=== PATIENT | female | born 1975 | race Caucasian/White ===

== ENCOUNTER 2021-11-05 12:18 | Emergency (ER) | payer OTHER ==
[2021-11-05 12:48] LABS: BASOPHILS % (AUTO) 0.1 %; EOSINOPHILS % (AUTO) 0.2 %; HCT - HEMATOCRIT 46.8 % (37.0-47.0); HGB - HEMOGLOBIN 16.2 g/dL (12.0-16.0); LYMPHOCYTES # (AUTO) 1.2 10^3/uL (1.5-3.5); LYMPHOCYTES % (AUTO) 8.7 %; MEAN CORPUSCULAR HEMOGLOBIN 29.1 pg (27.0-31.0); MEAN CORPUSCULAR HGB CONC 34.6 g/dL (32.0-36.0); MEAN PLATELET VOLUME 9.3 fL (7.9-10.8); MONOCYTES # (AUTO) 0.5 10^3/uL (0.0-1.0); MONOCYTES % (AUTO) 3.4 %; NEUTROPHILS % (AUTO) 87.2 %; PLT - PLATELET COUNT 327 10^3/uL (130-450); RED BLOOD COUNT 5.57 10^6/uL (4.20-5.40); RED CELL DISTRIBUTION WIDTH 12.2 % (12.0-15.0); WHITE BLOOD COUNT 13.7 x10^3/uL (4.8-10.8)
[2021-11-05 13:02] LABS: ALBUMIN 4.9 g/dL (3.2-5.5); ALBUMIN/GLOBULIN RATIO 1.6 (1.0-2.2); BILIRUBIN,TOTAL 0.7 mg/dL (0.2-1.0); CALCIUM 9.3 mg/dL (8.5-10.3); CREATININE 0.8 mg/dL (0.4-1.0); POTASSIUM 3.9 mmol/L (3.5-5.0)
--- NOTE | 2021-11-05 13:51 | ED Physician Documentation ---
PD HPI NVD - Stated complaint Stated Complaint: VOMITTING/DIARRHEA - Chief complaint Chief Complaint: Abd Pain - History obtained from History obtained from: Patient - History of Present Illness Timing - onset: Last night Timing - duration: Hours Timing - details: Abrupt onset (nausea and vomiting with diarrhea started overnight and still this morning.), Still present Associated symptoms: Abdominal pain (crampy mid abd), Loss of appetite. No: Near syncope / syncope Contributing factors: No: Sick contact, Bad food, Recent antibiotics, Alcohol use Worsened by: Eating Similar symptoms before: Has not had sx before Recently seen: Clinic Review of Systems Constitutional: denies: Fever, Chills Nose: denies: Rhinorrhea / runny nose, Congestion Throat: denies: Sore throat Respiratory: denies: Cough GI: reports: Abdominal Pain, Nausea, Vomiting, Diarrhea. 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: section - Present Medications Home Medications: Ambulatory Orders Medication Instructions Recorded Confirmed Diphenoxylate/Atropine [Lomotil] 1 each PO QID PRN #12 tablet 11/05/21 Famotidine [Pepcid] 20 mg PO DAILY #15 tablet 11/05/21 Ondansetron Odt [Zofran] 4 mg TL Q6H PRN #10 tablet 11/05/21 - Allergies Allergies/Adverse Reactions: Allergies Allergy/AdvReac Type Severity Reaction Status Date / Time No Known Drug Allergies Allergy Verified 11/05/21 12:26 PD ED PE NORMAL - Vitals Vital signs reviewed: Yes - General General: Alert and oriented X 3, Well developed/nourished, Other (appears uncomfortable due to nausea. ) - HEENT HEENT: Pharynx benign. No: Moist mucous membranes - Neck Neck: Supple, no meningeal sign, No adenopathy - Cardiac Cardiac: RRR, No murmur - Respiratory Respiratory: Clear bilaterally - Abdomen Abdomen: Soft, Non distended, No organomegaly, Other (tender mid abd to epiga stric. Not really tender in RLQ. No percussion nor rebound. ). No: Normal bowel sounds (somewhat hyperactive.) Results - Vitals Vitals: Vital Signs - 24 hr 11/05/21 11/05/21 11/05/21 12:27 14:52 16:00 Temperature 36.5 C 96.6 C H 36.6 C Heart Rate 98 90 86 Respiratory 16 16 16 Rate Blood Pressure 149/99 H 124/73 141/71 H O2 Saturation 98 98 100 11/05/21 17:03 Temperature 36.7 C Heart Rate 88 Respiratory 16 Rate Blood Pressure 136/87 H O2 Saturation 99 Oxygen O2 Source Room air - Labs Labs: Laboratory Tests 11/05/21 11/05/21 11/05/21 12:45 12:45 15:04 WBC 13.7 H RBC 5.57 H Hgb 16.2 H Hct 46.8 MCV 84.0 MCH 29.1 MCHC 34.6 RDW 12.2 Plt Count 327 MPV 9.3 Neut # (Auto) 12.0 H Lymph # (Auto) 1.2 L [place] # (Auto) 0.5 Eos # (Auto) 0.0 Baso # (Auto) 0.0 Absolute Nucleated RBC 0.00 Nucleated RBC % 0.0 Sodium 136 Potassium 3.9 Chloride 104 Carbon Dioxide 22 Anion Gap 10.0 BUN 12 Creatinine 0.8 Estimated GFR (MDRD) 77 L Glucose 132 H Calcium 9.3 Total Bilirubin 0.7 AST 19 ALT 31 Alkaline Phosphatase 71 Total Protein 8.0 Albumin 4.9 Globulin 3.1 Albumin/Globulin Ratio 1.6 Lipase 39 Urine Color YELLOW Urine Clarity CLEAR Urine pH 6.0 Ur Specific [place] 1.015 Urine Protein NEGATIVE Urine Glucose (UA) NEGATIVE Urine Ketones NEGATIVE Urine Occult Blood SMALL H Urine Nitrite NEGATIVE Urine Bilirubin NEGATIVE Urine Urobilinogen 0.2 (NORMAL) Ur Leukocyte Esterase NEGATIVE Urine RBC 0-5 Urine WBC 0-3 Ur Squamous Epith Cells FEW Squamous Urine Bacteria Rare Urine Mucus Few Strands Ur Microscopic Review INDICATED Urine Culture Comments NOT INDICATED PD MEDICAL DECISION MAKING - ED course Complexity details: considered differential (shared decision for IV fluids and meds, labs, without imaging at this time, as seems likely GE and not as suspicious for appy, divertic, SBO, etc.), d/w patient Departure - Departure Disposition: 01 Home, Self Care Clinical Impression: Nausea vomiting and diarrhea, Dehydration, Upper abdominal pain Condition: Stable Instructions: ED Diet Vomiting Diarrhea Prescriptions: Diphenoxylate/Atropine [Lomotil] 1 each PO QID PRN #12 tablet PRN Reason: Diarrhea Famotidine [Pepcid] 20 mg PO DAILY #15 tablet Ondansetron Odt [Zofran] 4 mg TL Q6H PRN #10 tablet PRN Reason: Nausea / Vomiting Comments: Your symptoms sound most likely to be a viral gastroenteritis with the nausea vomiting diarrhea and abdominal pains. It does not seem located in the position to think of appendicitis. Your gallbladder is already gone. Your blood tests appear normal with a normal lipase and liver function tests. At this point I think it is reasonable to see how you do with antiemetic and antidiarrheal. Add Tylenol every 4-6 hours if needed for pain. No doubt your stomach would be irritated from the vomiting as well as the initial illness so some acid reducing medicine such as famotidine once or twice daily for the next week to 2 weeks. Recheck if not improved well over the next 1 to 2 days and return sooner if worsening symptoms or persistence in the abdominal discomfort. I transmitted your prescriptions to [facility] pharmacy in [place]. Discharge Date/Time: 11/05/21 17:06
[2021-11-05] MEDS ORDERED: ONDANSETRON 4 MG/2 ML VIAL IVP STA ×2 (14:02→15:32)
[2021-11-05] MEDS ORDERED: FAMOTIDINE 20 MG/2 ML VIAL IVP STA (14:02)
[2021-11-05] MEDS ORDERED: SODIUM CHLORIDE 0.9% 1,000 ML IV STA ×3 (14:02→15:32)
[2021-11-05] MEDS ORDERED: HYDROmorphone 0.5 MG/0.5 ML SYRINGE IVP STA (14:02)
[2021-11-05] MEDS ORDERED: DIPHENOX/ATROPINE 2.5/0.025 MG TABLET PO STA (14:58)
[2021-11-05 15:11] LABS: BILIRUBIN,URINE NEGATIVE (NEGATIVE); GLUCOSE, URINE (UA) NEGATIVE (NEGATIVE); KETONES,URINE (UA) NEGATIVE (NEGATIVE); LEUKOCYTE ESTERASE, URINE NEGATIVE (NEGATIVE); NITRITE,URINE NEGATIVE (NEGATIVE); OCCULT BLOOD,URINE SMALL (NEGATIVE); PROTEIN,URINE NEGATIVE (NEGATIVE); UROBILINOGEN,URINE 0.2 (NORMAL) E.U./dL (NORMAL)
[2021-11-05 15:16] LABS: CLARITY,URINE CLEAR (CLEAR)
[2021-11-05 15:23] LABS: BACTERIA,URINE Rare /HPF (None Seen); MUCUS,URINE Few Strands; RBC,URINE 0-5 /HPF (0-5); SQUAMOUS EPITHELIAL CELL,UR FEW Squamous (<= Few); WBC,URINE 0-3 /HPF (0-5)
[2021-11-05] MEDS ORDERED: KETOROLAC 30 MG/ML VIAL IVP STA (16:03)
[2021-11-05 17:04] VITALS: BP 136/87
== END 2021-11-05 17:06 | disposition home or self-care (01) ==
LOC: ED 12:18
DX: R11.2 Nausea with vomiting, unspecified (principal); R19.7 Diarrhea, unspecified; R10.10 Upper abdominal pain, unspecified; E86.0 Dehydration
CPT/HCPCS: 36415; 80053; 81001; 83690; 85025; 96374; 96375; 96376; 99282; 99285; A9270; J1170; 81003; 87086